=== PATIENT | female | born 1990 | race Caucasian/White ===

== ENCOUNTER 2018-03-02 13:02 | Inpatient (IN) | payer OTHER ==
[2018-03-02] MEDS ORDERED: OXYTOCIN 30 UNITS/LR 500 ML IV ×3 (13:30)
[2018-03-02] MEDS ORDERED: METHYLERGONOVINE 0.2 MG INJ IM (13:30)
[2018-03-02] MEDS ORDERED: CARBOPROST 250 MCG INJ IM (13:30)
[2018-03-02] MEDS ORDERED: LIDOCAINE 1% (MPF) 30 ML INJ INJ (13:30)
[2018-03-02] MEDS ORDERED: MISOPROSTOL 200 MCG TAB PR (13:30)
[2018-03-02] MEDS: LACTATED RINGER'S 1,000 ML IV ×2 (15:41→21:23)
[2018-03-02 16:11] LABS: ADD MAN DIFF? NO
[2018-03-02 16:13] LABS: BASOPHIL # 0.1 10^3/ul (0.0-0.1); BASOPHILS % 0.6 % (0.0-2.0); EOSINOPHILS # 0.1 10^3/ul (0.0-0.5); EOSINOPHILS % 1.8 % (0.0-7.0); HEMATOCRIT 33.4 % (37.0-47.0); HEMOGLOBIN 11.3 g/dl (12.0-16.0); LYMPHOCYTES # 1.7 10^3/ul (0.8-2.9); LYMPHOCYTES % 20.8 % (15.0-51.0); MEAN CORPUSCULAR HEMOGLOBIN 30.3 pg (29.0-33.0); MEAN CORPUSCULAR HGB CONC 33.8 g/dl (32.0-37.0); MEAN CORPUSCULAR VOLUME 89.5 fl (82.0-101.0); MEAN PLATELET VOLUME 10.3 fl (7.4-10.4); MONOCYTE # 0.6 10^3/ul (0.3-0.9); MONOCYTES % 6.9 % (0.0-11.0); NEUTROPHIL # 5.4 10^3/ul (1.6-7.5); NEUTROPHILS % 67.9 % (39.0-77.0); PLATELET COUNT 372 10^3/UL (140-415); RED BLOOD COUNT 3.73 10^6/ul (4.20-5.40); RED CELL DISTRIBUTION WIDTH 13.6 % (11.5-14.5)
[2018-03-02 16:33] LABS: INR 0.89; PROTIME 12.1 Sec (11.9-14.9); PT RATIO 0.9
[2018-03-02 16:34] LABS: PARTIAL THROMBOPLASTIN TIME 27.1 Sec (23.0-35.0)
[2018-03-02] MEDS ORDERED: MISOPROSTOL 100 MCG TAB PO (17:00)
[2018-03-02] MEDS: MISOPROSTOL 50 MCG CAPSULE PO ×2 (17:33→21:31)
[2018-03-02 18:34] LABS: HEPATITIS B SURFACE ANTIGEN NEGATIVE (NEGATIVE)
[2018-03-02 20:54] LABS: RAPID PLASMA REAGIN NONREACTIVE (NR)
[2018-03-02] MEDS: URSODIOL 300 MG CAP PO (21:00)
[2018-03-03] MEDS: LACTATED RINGER'S 1,000 ML IV ×3 (00:11→16:46)
[2018-03-03] MEDS: MISOPROSTOL 50 MCG CAPSULE PO ×4 (01:51→14:49)
[2018-03-03] MEDS: URSODIOL 300 MG CAP PO ×3 (09:24→20:58)
[2018-03-03 11:52] LABS: RUPTURE FETAL MEMBRANES NEGATIVE (NEGATIVE)
[2018-03-03] MEDS ORDERED: MISOPROSTOL 50 MCG CAPSULE PO (21:00)
[2018-03-04] MEDS: LACTATED RINGER'S 1,000 ML IV ×3 (01:46→17:47)
[2018-03-04] MEDS: MISOPROSTOL 50 MCG CAPSULE PO ×5 (06:07→21:10)
[2018-03-04] MEDS: URSODIOL 300 MG CAP PO ×3 (09:01→21:10)
[2018-03-05] MEDS: LACTATED RINGER'S 1,000 ML IV ×2 (00:59→10:07)
[2018-03-05] MEDS: MISOPROSTOL 50 MCG CAPSULE PO (02:01)
[2018-03-05] MEDS: URSODIOL 300 MG CAP PO ×2 (09:15→14:24)
== END 2018-03-05 16:35 | disposition home or self-care (01) | DRG 831 ==
LOC: OBT 13:02 → L-D 13:02 → OBT 13:04 → L-D 13:03
PROVIDERS: Obstetrics & Gynecology
DX: O26.613 Liver and biliary tract disorders in pregnancy, third trimester (principal); K83.1 Obstruction of bile duct; Z3A.37 37 weeks gestation of pregnancy
CPT/HCPCS: 76815; 76818; 84112; 85025; 85610; 85730; 86592; 86850; 86900; 86901; 87340

== ENCOUNTER 2018-03-07 10:10 | Outpatient (CLI) | payer OTHER | END 2018-03-07 13:29 | disposition home or self-care (01) | LOC: OBT 10:10 → L-D 10:11 → OBT 13:29 | DX: O26.893 Other specified pregnancy related conditions, third trimester (principal); Z3A.38 38 weeks gestation of pregnancy; R10.9 Unspecified abdominal pain | CPT/HCPCS: 76815; 76818 ==

== ENCOUNTER 2018-03-09 09:53 | Inpatient (IN) | payer OTHER ==
[2018-03-09] MEDS ORDERED: OXYTOCIN 30 UNITS/LR 500 ML IV ×2 (11:00)
[2018-03-09] MEDS ORDERED: LIDOCAINE 1% (MPF) 30 ML INJ INJ (11:00)
[2018-03-09] MEDS ORDERED: MISOPROSTOL 200 MCG TAB PR (11:00)
[2018-03-09] MEDS ORDERED: IBUPROFEN 600 MG TAB PO (11:00)
[2018-03-09] MEDS ORDERED: METHYLERGONOVINE 0.2 MG INJ IM (11:00)
[2018-03-09] MEDS ORDERED: CARBOPROST 250 MCG INJ IM (11:00)
[2018-03-09] MEDS ORDERED: BUTORPHANOL 2 MG INJ IV (11:00)
[2018-03-09] MEDS: LACTATED RINGER'S 1,000 ML IV ×3 (11:36→23:21)
[2018-03-09 11:59] LABS: ADD MAN DIFF? NO
[2018-03-09 12:02] LABS: WHITE BLOOD COUNT 8.2 10^3/ul (4.8-10.8)
[2018-03-09 12:02] LABS: BASOPHIL # 0.1 10^3/ul (0.0-0.1); BASOPHILS % 0.9 % (0.0-2.0); EOSINOPHILS # 0.2 10^3/ul (0.0-0.5); EOSINOPHILS % 2.2 % (0.0-7.0); HEMATOCRIT 33.6 % (37.0-47.0); HEMOGLOBIN 11.3 g/dl (12.0-16.0); LYMPHOCYTES # 1.6 10^3/ul (0.8-2.9); LYMPHOCYTES % 19.2 % (15.0-51.0); MEAN CORPUSCULAR HEMOGLOBIN 29.7 pg (29.0-33.0); MEAN CORPUSCULAR HGB CONC 33.6 g/dl (32.0-37.0); MEAN CORPUSCULAR VOLUME 88.2 fl (82.0-101.0); MEAN PLATELET VOLUME 10.2 fl (7.4-10.4); MONOCYTE # 0.5 10^3/ul (0.3-0.9); MONOCYTES % 6.1 % (0.0-11.0); NEUTROPHIL # 5.7 10^3/ul (1.6-7.5); NEUTROPHILS % 69.4 % (39.0-77.0); PLATELET COUNT 341 10^3/UL (140-415); RED BLOOD COUNT 3.81 10^6/ul (4.20-5.40); RED CELL DISTRIBUTION WIDTH 13.7 % (11.5-14.5)
[2018-03-09] MEDS: MISOPROSTOL 50 MCG CAPSULE PO ×2 (12:12→16:48)
[2018-03-09 12:23] LABS: INR 0.95; PROTIME 12.8 Sec (11.9-14.9)
[2018-03-09 12:24] LABS: PARTIAL THROMBOPLASTIN TIME 26.4 Sec (23.0-35.0)
[2018-03-09] MEDS: URSODIOL 300 MG CAP PO ×2 (12:38→21:27)
[2018-03-09 15:02] LABS: ADD UMIC YES; UR AMORPHOUS CRYSTAL FEW /HPF (NONE SEEN); UR ASCORBIC ACID NEGATIVE (NEGATIVE); UR BACTERIA MODERATE /HPF (NONE SEEN); UR BILIRUBIN (Dip) NEGATIVE (NEGATIVE); UR BLOOD (Dip) 1+ mg/dL (NEGATIVE); UR CLARITY CLOUDY (CLEAR); UR COLOR YELLOW (YELLOW); UR GLUCOSE (Dip) NEGATIVE (NEGATIVE); UR KETONES (Dip) NEGATIVE (NEGATIVE); UR LEUKOCYTE ESTERASE (Dip) 1+ Leu/ul (NEGATIVE); UR MUCUS FEW /HPF (NONE SEEN); UR NITRITE (Dip) NEGATIVE (NEGATIVE); UR RBC 1 /HPF (0-5); UR SPECIFIC GRAVITY (Dip) 1.013 (1.003-1.030); UR SQUAMOUS EPITHELIAL CELL MODERATE /HPF (FEW); UR TOTAL PROTEIN (Dip) NEGATIVE (NEGATIVE); UR UROBILINOGEN (Dip) NEGATIVE (NEGATIVE); UR WBC 4 /HPF (0-5)
[2018-03-09 20:51] LABS: RAPID PLASMA REAGIN NONREACTIVE (NR)
[2018-03-10] MEDS: MISOPROSTOL 50 MCG CAPSULE PO ×6 (01:19→17:00)
[2018-03-10] MEDS ORDERED: MINERAL OIL LIGHT 10 ML VIAL TOP (05:00)
[2018-03-10] MEDS: LACTATED RINGER'S 1,000 ML IV ×3 (07:43→20:40)
[2018-03-10] MEDS: URSODIOL 300 MG CAP PO ×3 (08:49→21:20)
[2018-03-11] MEDS: LACTATED RINGER'S 1,000 ML IV ×5 (03:52→21:27)
[2018-03-11] MEDS: OXYTOCIN 30 UNITS/LR 500 ML IV (05:00)
[2018-03-11] MEDS ORDERED: ROPIVACAINE 0.5 % 30 ML VIAL (07:00)
[2018-03-11] MEDS: URSODIOL 300 MG CAP PO ×2 (09:00→13:00)
[2018-03-11] MEDS ORDERED: ZOLPIDEM 5 MG TAB PO (16:00)
[2018-03-11] MEDS ORDERED: ONDANSETRON 4 MG INJ IV (16:00)
[2018-03-11] MEDS ORDERED: NALOXONE (0.4 MG/ML) INJ IV (16:00)
[2018-03-11] MEDS ORDERED: HYDROmorphONE 0.5 MG/0.5 ML SYG IV ×2 (16:00)
[2018-03-11] MEDS ORDERED: DIPHENHYDRAMINE 50 MG INJ IV (16:00)
[2018-03-11] MEDS ORDERED: KETOROLAC 30 MG INJ IV (16:00)
[2018-03-11] MEDS ORDERED: LIDOCAINE 1% (MPF) 30 ML INJ (23:23)
[2018-03-12] MEDS: FENTAnyl 2MCG/ML-ROPIV 0.2% 100 ML BAG EPI (00:31)
[2018-03-12] MEDS ORDERED: MINERAL OIL LIGHT 10 ML VIAL (00:58)
[2018-03-12] MEDS: ACETAMINOPHEN 325 MG TAB PO (01:12)
[2018-03-12] MEDS: GENTAMICIN 120 MG/NS (PMX) 100 ML IVPB (01:13)
[2018-03-12] MEDS: AMPICILLIN 2 GM/NS (PMX) 100 ML IVPB (02:08)
[2018-03-12] MEDS: OXYTOCIN 30 UNITS/LR 500 ML IV (02:12)
[2018-03-12] MEDS: LACTATED RINGER'S 1,000 ML IV* ×3 (04:33→20:33)
[2018-03-12] MEDS ORDERED: METHYLERGONOVINE 0.2 MG INJ IM (05:00)
[2018-03-12] MEDS ORDERED: DIBUCAINE 1% 30 GM OINT TOP (05:00)
[2018-03-12] MEDS ORDERED: MISOPROSTOL 200 MCG TAB PR (05:00)
[2018-03-12] MEDS ORDERED: WITCH HAZEL/GLYCERIN PAD PR (05:00)
[2018-03-12] MEDS ORDERED: OXYTOCIN 30 UNITS/LR 500 ML IV (05:00)
[2018-03-12] MEDS ORDERED: HYDROCODONE/APAP (5/325) TAB PO ×2 (05:00)
[2018-03-12] MEDS ORDERED: CARBOPROST 250 MCG INJ IM (05:00)
[2018-03-12] MEDS ORDERED: ZOLPIDEM 5 MG TAB PO (05:00)
[2018-03-12] MEDS: BENZOCAINE 20% 56 ML SPRAY TOP (05:58)
[2018-03-12] MEDS: ACETAMINOPHEN 500 MG TAB PO ×3 (05:59→17:00)
[2018-03-12] MEDS: IBUPROFEN 600 MG TAB PO ×3 (05:59→17:37)
[2018-03-12] MEDS: AMPICILLIN/SULB 3 GM/NS (PMX) 100 ML IVPB ×3 (05:59→17:57)
[2018-03-12] MEDS: SENNA/DOCUSATE NA (8.6MG/50MG) TAB PO ×2 (08:25→21:20)
[2018-03-12] MEDS: MAGNESIUM HYDROXIDE 30ML CUP PO ×2 (08:25→21:20)
[2018-03-12] MEDS ORDERED: GENTAMICIN 80 MG/NS (PMX) 50 ML IVPB (09:00)
[2018-03-12 17:11] LABS: ADD MAN DIFF? NO
[2018-03-12 17:13] LABS: WHITE BLOOD COUNT 14.9 10^3/ul (4.8-10.8)
[2018-03-12 17:13] LABS: BASOPHIL # 0.1 10^3/ul (0.0-0.1); BASOPHILS % 0.4 % (0.0-2.0); EOSINOPHILS # 0.1 10^3/ul (0.0-0.5); EOSINOPHILS % 0.9 % (0.0-7.0); HEMATOCRIT 26.4 % (37.0-47.0); LYMPHOCYTES # 1.7 10^3/ul (0.8-2.9); LYMPHOCYTES % 11.6 % (15.0-51.0); MEAN CORPUSCULAR HEMOGLOBIN 30.3 pg (29.0-33.0); MEAN CORPUSCULAR HGB CONC 34.1 g/dl (32.0-37.0); MEAN CORPUSCULAR VOLUME 88.9 fl (82.0-101.0); MEAN PLATELET VOLUME 10.3 fl (7.4-10.4); MONOCYTE # 0.9 10^3/ul (0.3-0.9); MONOCYTES % 5.9 % (0.0-11.0); NEUTROPHILS % 80.7 % (39.0-77.0); PLATELET COUNT 249 10^3/UL (140-415); RED BLOOD COUNT 2.97 10^6/ul (4.20-5.40)
[2018-03-12] MEDS: LANOLIN 7 GM TUBE TOP (19:35)
[2018-03-13] MEDS: IBUPROFEN 600 MG TAB PO ×5 (00:09→23:25)
[2018-03-13] MEDS: AMPICILLIN/SULB 3 GM/NS (PMX) 100 ML IVPB ×4 (00:09→17:35)
[2018-03-13] MEDS: ACETAMINOPHEN 500 MG TAB PO ×5 (00:09→23:25)
[2018-03-13] MEDS: LACTATED RINGER'S 1,000 ML IV* ×3 (04:33→20:33)
[2018-03-13] MEDS: MAGNESIUM HYDROXIDE 30ML CUP PO ×2 (09:00→21:12)
[2018-03-13] MEDS: SENNA/DOCUSATE NA (8.6MG/50MG) TAB PO ×2 (09:00→21:12)
[2018-03-13] MEDS ORDERED: LANOLOLIN HPA 1 PKT TOP (18:53)
[2018-03-13] MEDS: AMPICILLIN/SULBAC 3 GM in SOD CHLORIDE 0.9% 100 ML IVPB (23:28)
[2018-03-14] MEDS: LACTATED RINGER'S 1,000 ML IV* (04:33)
[2018-03-14] MEDS: IBUPROFEN 600 MG TAB PO ×2 (05:40→11:33)
[2018-03-14] MEDS: ACETAMINOPHEN 500 MG TAB PO ×2 (05:40→11:33)
[2018-03-14] MEDS: AMPICILLIN/SULBAC 3 GM in SOD CHLORIDE 0.9% 100 ML IVPB ×2 (05:41→12:00)
[2018-03-14] MEDS: MINERAL OIL LIGHT 10 ML VIAL TOP (07:43)
[2018-03-14] MEDS: MEASLES,MUMPS,RUBELLA VACCINE INJ SC* (07:44)
[2018-03-14 08:52] LABS: ADD MAN DIFF? NO
[2018-03-14] MEDS: VARICELLA VACCINE LIVE/PF 1,350 UNIT/0.5 ML ML SC* (09:00)
[2018-03-14] MEDS: DIPHTH/TET/ACEL PERTUSS (ADULT) 0.5 ML VIAL IM* (09:00)
[2018-03-14 09:25] LABS: WHITE BLOOD COUNT 10.8 10^3/ul (4.8-10.8)
[2018-03-14 09:25] LABS: BASOPHIL # 0.1 10^3/ul (0.0-0.1); BASOPHILS % 0.6 % (0.0-2.0); EOSINOPHILS # 0.3 10^3/ul (0.0-0.5); EOSINOPHILS % 2.9 % (0.0-7.0); HEMATOCRIT 26.7 % (37.0-47.0); HEMOGLOBIN 8.8 g/dl (12.0-16.0); LYMPHOCYTES # 2.2 10^3/ul (0.8-2.9); LYMPHOCYTES % 20.2 % (15.0-51.0); MEAN CORPUSCULAR HEMOGLOBIN 29.8 pg (29.0-33.0); MEAN CORPUSCULAR VOLUME 90.5 fl (82.0-101.0); MEAN PLATELET VOLUME 10.4 fl (7.4-10.4); MONOCYTE # 0.6 10^3/ul (0.3-0.9); MONOCYTES % 5.4 % (0.0-11.0); NEUTROPHIL # 7.5 10^3/ul (1.6-7.5); NEUTROPHILS % 69.1 % (39.0-77.0); PLATELET COUNT 320 10^3/UL (140-415); RED BLOOD COUNT 2.95 10^6/ul (4.20-5.40); RED CELL DISTRIBUTION WIDTH 14.3 % (11.5-14.5)
[2018-03-14] MEDS: SENNA/DOCUSATE NA (8.6MG/50MG) TAB PO (10:08)
[2018-03-14] MEDS: MAGNESIUM HYDROXIDE 30ML CUP PO (10:08)
== END 2018-03-14 13:38 | disposition home or self-care (01) | DRG 807 ==
LOC: L-D 03-12 02:41 → PP1 03-12 04:27
PROVIDERS: Obstetrics & Gynecology
PROC: 10E0XZZ Delivery of Products of Conception, External Approach (ICD-10-PCS; principal; 2018-03-11)
PROC: 0W8NXZZ Division of Female Perineum, External Approach (ICD-10-PCS; 2018-03-11)
DX: O76 Abnormality in fetal heart rate and rhythm complicating labor and delivery (principal); Z37.0 Single live birth; Z3A.38 38 weeks gestation of pregnancy
CPT/HCPCS: 62319; 76816; 81001; 85025; 85610; 85730; 86592; 86850; 86900; 86901; 87040; 87086; 88307; 90716; 99464